=== PATIENT | male | born 1950 | race Caucasian/White ===

== ENCOUNTER 2019-11-27 09:52 | Day surgery (SDC) | payer MEDICARE ==
[~2019-11-27] VITALS: Ht 167.6 cm; Wt 106.6 kg
[2019-11-27] MEDS ORDERED: DICLOFENAC SOD100 G1 (10:17)
[2019-11-27] MEDS ORDERED: ZOCOR20 MG (10:17)
[2019-11-27] MEDS ORDERED: IBUP800 (10:17)
[2019-11-27] MEDS ORDERED: METF500 (10:18)
[2019-11-27] MEDS ORDERED: ZOLP10 (10:18)
== END 2019-11-27 11:42 | disposition home or self-care (01) ==
LOC: ORSCSDS 09:52
PROVIDERS: Internal Medicine Gastroenterology
PROC: 0DB68ZX Excision of Stomach, Via Natural or Artificial Opening Endoscopic, Diagnostic (ICD-10-PCS; principal; 2019-11-27 11:00)
PROC: 0D758ZZ Dilation of Esophagus, Via Natural or Artificial Opening Endoscopic (ICD-10-PCS; principal; 2019-11-27 11:00)
PROC: 0DJD8ZZ Inspection of Lower Intestinal Tract, Via Natural or Artificial Opening Endoscopic (ICD-10-PCS; principal; 2019-11-27 11:00)
PROC: 0DB58ZX Excision of Esophagus, Via Natural or Artificial Opening Endoscopic, Diagnostic (ICD-10-PCS; principal; 2019-11-27 11:00)
DX: R13.10 Dysphagia, unspecified (principal); Z12.11 Encounter for screening for malignant neoplasm of colon; K21.0 Gastro-esophageal reflux disease with esophagitis; K22.2 Esophageal obstruction; K44.9 Diaphragmatic hernia without obstruction or gangrene; K64.8 Other hemorrhoids; E11.9 Type 2 diabetes mellitus without complications; Z87.19 Personal history of other diseases of the digestive system; Z87.891 Personal history of nicotine dependence; E66.01 Morbid (severe) obesity due to excess calories; Z68.38 Body mass index [BMI] 38.0-38.9, adult; Z79.84 Long term (current) use of oral hypoglycemic drugs; Z79.899 Other long term (current) drug therapy
CPT/HCPCS: 43249; 43239; G0121; 82947; 88305; 88312; 88342; C1726; J2704; J7120

== ENCOUNTER 2020-04-29 07:37 | Day surgery (SDC) | payer MEDICARE ==
[~2020-04-29] VITALS: Ht 172.7 cm; Wt 108.3 kg
[~2020-04-29 07:37] MED LIST: DICLOFENAC SOD100 G1; GLIPIZIDE-METF1 EAC1 PO; IBUP800; METF500; OMEP20ER PO; ZOCOR20 MG; ZOLP10
[2020-04-29] MEDS ORDERED: FAMO20 PO (08:21)
--- NOTE | 2020-04-29 09:18 | NUR ---
04/29/[address] AWARE OF BP. WILL CONTINUE TO MONITOR. STEP DOWN NOTIFIED AND WILL MONITOR.
== END 2020-04-29 09:30 | disposition home or self-care (01) ==
LOC: ORSCSDS 07:37
PROVIDERS: Anesthesiology
PROC: 3E0R33Z Introduction of Anti-inflammatory into Spinal Canal, Percutaneous Approach (ICD-10-PCS; principal; 2020-04-29 08:45)
DX: M54.12 Radiculopathy, cervical region (principal); E11.9 Type 2 diabetes mellitus without complications; E78.00 Pure hypercholesterolemia, unspecified; K21.9 Gastro-esophageal reflux disease without esophagitis; E66.9 Obesity, unspecified; Z68.36 Body mass index [BMI] 36.0-36.9, adult; Z79.84 Long term (current) use of oral hypoglycemic drugs; Z79.899 Other long term (current) drug therapy
CPT/HCPCS: 82947; J1040; J2250; J3010; J7040

== ENCOUNTER → 2020-11-19 | Outpatient (CLI) | payer MEDICARE ==
[~2020-11-19] MED LIST changes: +FAMO20 PO
[2020-11-19 12:49] LABS: U Amphetamine Screen Not Detected
[2020-11-19 12:50] LABS: U Barbituate Screen Not Detected; U Benzodiazapine Screen Not Detected; U Buprenorphine Screen Not Detected; U Cannabinoids Screen Not Detected; U Cocaine Screen Not Detected; U Methadone Screen Not Detected; U Methamphetamine Screen Not Detected; U Opiates Screen Not Detected; U Oxycodone Screen Not Detected; U Phencyclidine Screen Not Detected; U Propoxyphene Screen Not Detected
== END | disposition home or self-care (01) ==
LOC: LAB 10:50 → LAB SHORT 10:50
PROVIDERS: Physician Assistant Medical
DX: Z51.81 Encounter for therapeutic drug level monitoring (principal); Z79.891 Long term (current) use of opiate analgesic

== ENCOUNTER 2021-08-11 10:45 | Day surgery (SDC) | payer MEDICARE ==
[~2021-08-11] VITALS: Ht 172.7 cm; Wt 106.6 kg
[2021-08-11] MEDS ORDERED: Prinivil5 MG (11:01)
--- NOTE | 2021-08-11 11:46 | NUR ---
08/11/21 1146 Reji Villanueva ISOVUE 200 & LIDOCAINE 1% USED DURING PROCEDURE BY DR ABDUL.
== END 2021-08-11 12:26 | disposition home or self-care (01) ==
LOC: ORSCSDS 10:45
PROVIDERS: Anesthesiology
PROC: 3E0R33Z Introduction of Anti-inflammatory into Spinal Canal, Percutaneous Approach (ICD-10-PCS; principal; 2021-08-11 11:45)
DX: M50.123 Cervical disc disorder at C6-C7 level with radiculopathy (principal); K21.9 Gastro-esophageal reflux disease without esophagitis; I10 Essential (primary) hypertension; E78.00 Pure hypercholesterolemia, unspecified; E11.9 Type 2 diabetes mellitus without complications; E66.9 Obesity, unspecified; Z68.36 Body mass index [BMI] 36.0-36.9, adult; Z87.891 Personal history of nicotine dependence; Z79.899 Other long term (current) drug therapy
CPT/HCPCS: 82947; J1040; J1100; J1885; J2250; J2405; J3010

== ENCOUNTER 2021-12-30 06:50 | Inpatient (IN) | payer MEDICARE ==
[~2021-12-30] VITALS: Ht 172.7 cm; Wt 100.9 kg
[~2021-12-30 06:50] MED LIST changes: +Prinivil5 MG PO; -ZOCOR20 MG; +ZOCOR20 MG PO; -ZOLP10; +ZOLP10 PO
[2021-12-30 07:22] LABS: BASOPHILS ABSOLUTE AUTO 0.04 K/mm3 (0.00-0.23); BASOPHILS PERCENT AUTO 0 % (0-2); EOSINOPHILS ABSOLUTE AUTO 0.09 K/mm3 (0.00-0.68); EOSINOPHILS PERCENT AUTO 1 % (0-6); Hemoglobin 17.6 g/dL (13.5-17.5); IMMATURE GRAN ABSOLUTE AUTO 0.07 K/mm3 (0.00-0.10); IMMATURE GRAN PERCENT AUTO 1 % (0-1); LYMPHOCYTES ABSOLUTE AUTO 1.24 K/mm3 (0.84-5.20); LYMPHOCYTES PERCENT AUTO 10 % (21-46); MONOCYTES ABSOLUTE AUTO 0.56 K/mm3 (0.16-1.47); MONOCYTES PERCENT AUTO 4 % (4-13); Mean Corpuscular HGB 29.4 pg (26.0-34.0); Mean Corpuscular HGB Conc 31.1 g/dL (31.5-36.5); Mean Corpuscular Volume 95 fL (80-100); Mean Platelet Volume 10.4 fL (9.1-12.4); NEUTROPHILS ABSOLUTE AUTO 10.59 K/mm3 (1.96-9.15); NEUTROPHILS PERCENT AUTO 84 % (41-73); Platelet Count 286 K/mm3 (150-400); RDW Coefficient Variation 13.1 % (11.7-14.2); RDW Standard Deviation 45.5 fL (35.1-46.3); Red Blood Cell Count 5.98 M/mm3 (4.30-5.90); White Blood Cell Count 12.59 K/mm3 (4.00-11.30)
[2021-12-30 07:25] LABS: Hematocrit 56.6 % (37.0-53.0)
[2021-12-30 07:37] LABS: Albumin, Blood 3.7 g/dL (3.4-5.0); Albumin/Globulin Ratio 0.8 (0.8-1.8); Bilirubin, Total 3.2 mg/dL (0.1-1.0); Calcium, Blood 11.1 mg/dL (8.5-10.1); Creatinine, Blood 0.86 mg/dL (0.60-1.20); Globulin, Blood 4.6 g/dL (2.2-4.0); Potassium, Blood 4.2 mmol/L (3.5-5.5); Total Protein, Blood 8.3 g/dL (6.4-8.2)
[2021-12-30 11:15] LABS: Influenza A, PCR NEGATIVE (NEGATIVE); Influenza B, PCR NEGATIVE (NEGATIVE); Resp Syncytial Virus, PCR NEGATIVE (NEGATIVE); SARS-Cov-2 (COVID-19) PCR, MMC NEGATIVE (NEGATIVE)
[2021-12-30 11:32] LABS: PCO2 Arterial 39.6 mmHg (35-45); PO2 Arterial 72.7 mmHg (80-100); pH Blood Arterial 7.35 (7.35-7.45)
[2021-12-30 12:28] LABS: Source, Urine Clean Catch
[2021-12-30 12:33] LABS: Appearance, Urine Clear (Clear); Blood, Urine Neg (Neg); Color, Urine Yellow (P-Yellow); Glucose Qualitative, Urine 1+ (Neg); Ketones, Urine 2+ (Neg); Leukocyte Esterase, Urine Neg (Neg); Nitrite, Urine Neg (Neg); Protein, Urine 2+ (Neg); Specific Gravity, Urine 1.025 (1.003-1.022); Urobilinogen, Urine 2+ (Normal)
[2021-12-30 12:44] LABS: Bilirubin, Urine 1+ (Neg)
[2021-12-30 12:46] LABS: Bacteria Few /hpf; Mucus Light (0-Heavy); Red Blood Cells, Urine 0-2 /hpf (0-2); Squamous Epithelial Cells Few /hpf (Few); U Amphetamine Screen Not Detected; U Barbituate Screen Not Detected; U Benzodiazapine Screen Not Detected; U Buprenorphine Screen Not Detected; U Cannabinoids Screen Not Detected; U Cocaine Screen Not Detected; U Methadone Screen Not Detected; U Methamphetamine Screen Not Detected; U Opiates Screen Not Detected; U Oxycodone Screen Not Detected; U Phencyclidine Screen Not Detected; U Propoxyphene Screen Not Detected; White Blood Cells, Urine 0-2 /hpf (0-5)
[2021-12-30 13:46] LABS: International Normalized Ratio 1.11; Prothrombin Time Results 11.6 Sec (9.7-11.5)
--- NOTE | 2021-12-30 14:40 | NUR ---
ARRIVAL TO ICU PT ARRIVES TO ICU AT 1350. BEDSIDE REPORT FROM PATRICIA ANDRE. PT ARRIVES A&OX 4. PLEASANT, ANSWERS QUESTIONS APPROPRIATELY. FOLLOWS COMMANDS. STATES HE IS FEELING BETTER. PT REPORTS PAIN TO RUQ STARTING AT 0400 THIS AM. STATES PAIN RESOLVED, DENIES N/V. ABD ROUND, SOFT, NON TENDER. BT X 4. PT DIAPHORETIC/CLAMMY. ROSELINE GTT FOR MAP>65, IVF STARTED AT 150 ML/HR. BBB ON MONITOR, RATE 80'S. TITRATING O2 DOWN, LUNGS CLEAR, DENIES SOB. WILL CONTINUE TO MONITOR.
[2021-12-30] MEDS ORDERED: EUTHYROX25 MC1 PO (14:42)
[2021-12-30] MEDS ORDERED: LOSARTAN POTASS25 M2 PO (14:43)
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
--- NOTE | 2021-12-31 01:32 | NUR ---
PT RESTED COMFORTABLY IN BED OVERNIGHT. DENIES PAIN OR SOB. A&OX4. O2 TITRATED OFF. INDEPENDENT WITH SELF CARE & AMBULATES IN THE ROOM. DENIES GI/ DISCOMFORT. TURNS SELF. WILL CTM
[2021-12-31 03:26] LABS: Hemoglobin 13.2 g/dL (13.5-17.5); Mean Corpuscular HGB Conc 32.2 g/dL (31.5-36.5); Mean Corpuscular Volume 93 fL (80-100); Mean Platelet Volume 9.7 fL (9.1-12.4); Platelet Count 183 K/mm3 (150-400); RDW Coefficient Variation 13.2 % (11.7-14.2); RDW Standard Deviation 45.1 fL (35.1-46.3); White Blood Cell Count 10.41 K/mm3 (4.00-11.30)
[2021-12-31 03:44] LABS: Magnesium, Blood 1.9 mg/dL (1.6-2.4)
[2021-12-31 03:47] LABS: BAND PERCENT MAN 26 % (0-8); BASOPHILS PERCENT MAN 0 % (0-2); EOSINOPHILS PERCENT MAN 1 % (0-6); LYMPHOCYTES ABSOLUTE MAN 0.52 K/mm3 (0.84-5.20); LYMPHOCYTES PERCENT MAN 5 % (21-46); MONOCYTES ABSOLUTE MAN 0.62 K/mm3 (0.16-1.47); MONOCYTES PERCENT MAN 6 % (4-13); NEUTROPHILS ABSOLUTE MAN 9.16 K/mm3 (1.96-9.15); SEG NEUTROPHILS PERCENT MAN 62 % (41-73); TOTAL CELLS COUNTED 100
[2021-12-31 03:48] LABS: Albumin, Blood 2.8 g/dL (3.4-5.0); Albumin/Globulin Ratio 0.9 (0.8-1.8); Bilirubin, Total 3.2 mg/dL (0.1-1.0); Bun/Creatinine Ratio 26.7 (12.0-20.0); Creatinine, Blood 1.05 mg/dL (0.60-1.20); Globulin, Blood 3.1 g/dL (2.2-4.0); Potassium, Blood 4.5 mmol/L (3.5-5.5)
[2021-12-31 03:49] LABS: Calcium, Blood 9.1 mg/dL (8.5-10.1); Total Protein, Blood 5.9 g/dL (6.4-8.2)
--- NOTE | 2021-12-31 09:00 | NUR ---
ASSUMED CARE OF PT. PT ALERT AND ORIENTED, INDEPENDENT IN ROOM. UP TO CHAIR TO EAT BREAKFAST. PT DENIES CHEST PAIN, SHORTNESS OF BREATH. REPORTS ABDOMINAL "FULLNESS" THAT IMPROVES WHEN UP IN CHAIR. VSS. PT DENIES NEEDS AT THIS TIME. SEE FULL SHIFT ASSESSMENT.
--- NOTE | 2021-12-31 14:47 | NUR ---
PT TO SOFTWARE ENGINEERING ANALYST
--- NOTE | 2021-12-31 18:10 | NUR ---
SHIFT SUMMARY PT REMAINS ALERT AND ORIENTED, INDEPENDENT IN ROOM. PT CONTINUES TO DENIES CHEST PAIN, SHORTNESS OF BREATH. REPORTS ABDOMINAL DISCOMFORT AND OCCASIONAL NAUSEA WITH DECREASED APPETITE, PT TREATED PER EMAR. PT TO REHABILITATION PROGRAM COORDINATOR THIS AFTERNOON, NO INTERVENTION WITH RECOMMENDED MEDICAL MANAGEMENT. SURGICAL CONSULT, NO PLAN TO REMOVE GALLSTONES THEYRE NOT OBSTRUCTING. PT'S UPDATED WITH PLAN OF CARE. PT AWAITING PCU BED FOR TRANSFER.
--- NOTE | 2021-12-31 22:52 | NUR ---
UPDATE PATIENT DESATTING INTO MID 80s WHILE SLEEPING. PLACED PATIENT ON 2L NC. OXYGEN SATURATION NOW MAINTAINING LOW TO MID 90s. SEE UPDATED ORDERS.
[2022-01-01 04:12] LABS: Hematocrit 42.7 % (37.0-53.0); Hemoglobin 13.9 g/dL (13.5-17.5); Mean Corpuscular HGB 29.6 pg (26.0-34.0); Mean Corpuscular HGB Conc 32.6 g/dL (31.5-36.5); Mean Corpuscular Volume 91 fL (80-100); Mean Platelet Volume 10.2 fL (9.1-12.4); Platelet Count 196 K/mm3 (150-400); RDW Coefficient Variation 13.2 % (11.7-14.2); Red Blood Cell Count 4.69 M/mm3 (4.30-5.90); White Blood Cell Count 9.35 K/mm3 (4.00-11.30)
[2022-01-01 04:33] LABS: Alanine Aminotransfer (ALT/SGP 375 U/L (12-78); Albumin, Blood 2.6 g/dL (3.4-5.0); Albumin/Globulin Ratio 0.8 (0.8-1.8); Alk Phos 370 U/L (50-136); Anion Gap 8 mmol/L (6-16); Aspartate Aminotrans (AST/SGOT 234 U/L (12-37); Bilirubin, Total 2.7 mg/dL (0.1-1.0); Blood Urea Nitrogen 21 mg/dL (8-24); Bun/Creatinine Ratio 27.2 (12.0-20.0); CHOL/HDL RATIO 14.2; CO2, Blood 24 mmol/L (21-32); Calcium, Blood 9.5 mg/dL (8.5-10.1); Chloride, Blood 109 mmol/L (98-108); Cholesterol 142 mg/dL (50-200); Creatinine, Blood 0.77 mg/dL (0.60-1.20); Globulin, Blood 3.3 g/dL (2.2-4.0); Glomerular Filtration Rate 97 (60-); Glucose, Blood 169 mg/dL (70-99); HDL Cholesterol 10 mg/dL (>39); LDL/HDL RATIO 9.3; Low Density Lipoprotein Chol 93 mg/dL (0-110); Magnesium, Blood 1.9 mg/dL (1.6-2.4); Potassium, Blood 3.9 mmol/L (3.5-5.5); Sodium, Blood 141 mmol/L (136-145); Total Protein, Blood 5.9 g/dL (6.4-8.2); Triglycerides 197 mg/dL (30-160); Very Low Density Lipoprot Chol 39 mg/dL (6-32)
[2022-01-01 05:05] LABS: BAND PERCENT MAN 12 % (0-8); BASOPHILS PERCENT MAN 0 % (0-2); EOSINOPHILS ABSOLUTE MAN 0.18 K/mm3 (0.00-0.68); EOSINOPHILS PERCENT MAN 2 % (0-6); LYMPHOCYTES ABSOLUTE MAN 0.56 K/mm3 (0.84-5.20); LYMPHOCYTES PERCENT MAN 6 % (21-46); MONOCYTES ABSOLUTE MAN 0.37 K/mm3 (0.16-1.47); MONOCYTES PERCENT MAN 4 % (4-13); NEUTROPHILS ABSOLUTE MAN 8.22 K/mm3 (1.96-9.15); SEG NEUTROPHILS PERCENT MAN 76 % (41-73); TOTAL CELLS COUNTED 100
--- NOTE | 2022-01-01 05:40 | NUR ---
SHIFT SUMMARY PATIENT ALERT AND ORIENTED x4. VSS. PATIENT WEARING 2L NC OVERNIGHT D/T DESATTING TO MID 80s WHILE SLEEPING. PATIENT TOLERATING RA WHILE AWAKE. TR BAND REMOVED AROUND 2200, TRANSPARENT DRESSING PLACED OVER INCISION. REMAINS C/D/I, NO SIGN OF HEMATOMA, ARM BOARD IN PLACE. AMBULATING INTO BATHROOM WITH MINIMAL ASSIST. NO OTHER SIGNIFICANT CHANGES THIS SHIFT. BED IN LOW POSITION, CALL LIGHT IN REACH. WILL REPORT TO DAY SHIFT RN.
--- NOTE | 2022-01-01 08:58 | NUR ---
TOOK OVER CARE OF PT AT 0700. PT RESTING.
--- NOTE | 2022-01-02 06:17 | NUR ---
SHIFT SUMMARY PATIENT ALERT AND ORIENTED x4, ABLE TO MAKE NEEDS KNOWN TO STAFF. VSS, PATIENT ON RA WITH O2 SAT >90%. NO REPORTS OF CHEST PAIN. RIGHT RADIAL SITE IS OPEN TO AIR. NO DRAINAGE OR SIGNS OF HEMATOMA. PATIENT AMBULATING INDEPENDENTLY IN THE ROOM OR TO BATHROOM. SUCCESSFUL BMs THIS SHIFT. NO OTHER SIGNIFICANT CHANGES THIS SHIFT. WILL REPORT TO DAY SHIFT RN.
[2022-01-02 07:08] LABS: Albumin, Blood 2.3 g/dL (3.4-5.0); Albumin/Globulin Ratio 0.6 (0.8-1.8); Bilirubin, Total 2.8 mg/dL (0.1-1.0); Bun/Creatinine Ratio 25.1 (12.0-20.0); Calcium, Blood 9.4 mg/dL (8.5-10.1); Creatinine, Blood 0.64 mg/dL (0.60-1.20); Globulin, Blood 3.6 g/dL (2.2-4.0); Potassium, Blood 3.8 mmol/L (3.5-5.5); Total Protein, Blood 5.9 g/dL (6.4-8.2)
--- NOTE | 2022-01-02 10:28 | NUR ---
HR/BP HR TOUCHING UP TO 110S AND THEN RETURNING TO 80S-90S. BP 163/90. PT DENIES ANY CP, PRESSURE OR SOB.
--- NOTE | 2022-01-02 12:54 | NUR ---
UPDATED DR LIZARRAGA ON PT'S VS. [address] LIZARRAGA THAT VS WERE TAKEN AT 1030 DUE TO TACHY READING ON TELE. PT DENIED AND CONTINUES TO DENY ANY CP OR PRESSURE OR SOB. DR LIZARRAGA TO PLACE ORDERS FOR DC.
[2022-01-02] MEDS ORDERED: ELIQUIS5 M2 PO (13:32)
[2022-01-02] MEDS ORDERED: Aspir 8181 MG PO (13:33)
[2022-01-02] MEDS ORDERED: Calcium Carbon500 MG PO (13:34)
[2022-01-02] MEDS ORDERED: DOCUZEN 8.6-501 EACH PO (13:35)
[2022-01-02] MEDS ORDERED: FAMO20 PO (13:35)
[2022-01-02] MEDS ORDERED: METO25ER PO (13:38)
--- NOTE | 2022-01-02 14:54 | NUR ---
discharged DC'D IVS, CATHETERS INTACT. REMOVED AND RETURNED TELE. 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 REMAINING PRESCRIPTIONS WERE FAXED TO [facility] PER PT REQUEST. REVIEWED DC INSTRUCTIONS W/PT; VERBALIZED UNDERSTANDING. PT LEFT UNIT IN WC W/POSSESSIONS AND DC PAPERWORK IN HAND, ACCOMPANIED BY FAMILY.
== END 2022-01-02 14:53 | disposition home or self-care (01) | DRG 280 ==
LOC: ER 06:50 → ICUE 12:44 → ICUW 12:44 → ICUE 13:48 → PCU 12-31 18:56
PROVIDERS: Emergency Medicine; Internal Medicine; Internal Medicine Cardiovascular Disease; Nurse Practitioner Acute Care; ADMIT Internal Medicine
PROC: 5A2204Z Restoration of Cardiac Rhythm, Single (ICD-10-PCS; 2021-12-30)
PROC: 4A023N7 Measurement of Cardiac Sampling and Pressure, Left Heart, Percutaneous Approach (ICD-10-PCS; principal; 2021-12-31)
PROC: B2111ZZ Fluoroscopy of Multiple Coronary Arteries using Low Osmolar Contrast (ICD-10-PCS; 2021-12-31)
DX: I21.4 Non-ST elevation (NSTEMI) myocardial infarction (principal); J96.01 Acute respiratory failure with hypoxia; K85.90 Acute pancreatitis without necrosis or infection, unspecified; I48.92 Unspecified atrial flutter; E87.2 Acidosis; R65.10 Systemic inflammatory response syndrome (SIRS) of non-infectious origin without acute organ dysfunction; R57.9 Shock, unspecified; I47.1 Supraventricular tachycardia; I50.20 Unspecified systolic (congestive) heart failure; Z20.822 Contact with and (suspected) exposure to COVID-19; K80.20 Calculus of gallbladder without cholecystitis without obstruction; I11.0 Hypertensive heart disease with heart failure; E11.9 Type 2 diabetes mellitus without complications; I25.10 Atherosclerotic heart disease of native coronary artery without angina pectoris; I27.20 Pulmonary hypertension, unspecified; I50.810 Right heart failure, unspecified; Z68.35 Body mass index [BMI] 35.0-35.9, adult; E78.2 Mixed hyperlipidemia; R74.01 Elevation of levels of liver transaminase levels; E66.01 Morbid (severe) obesity due to excess calories; M54.9 Dorsalgia, unspecified; G89.29 Other chronic pain; K21.9 Gastro-esophageal reflux disease without esophagitis; E03.9 Hypothyroidism, unspecified; Z79.84 Long term (current) use of oral hypoglycemic drugs; Z79.899 Other long term (current) drug therapy; Z90.49 Acquired absence of other specified parts of digestive tract
CPT/HCPCS: 0241U; 36415; 36600; 71045; 71260; 74177; 76705; 80053; 80061; 81001; 82330; 82803; 82947; 83605; 83690; 83735; 84443; 84484; 85025; 85610; 87040; 87077; 87186; 93005; 93010; 93306; 93458; 93970; 96365-59; 96367-59; 96375-59; 96376-59; 99152; 99153; 99285-25; A9270; C1751; C1769; C1894; J0153; J1644; J1650; J2250; J2270; J2370; J2405; J2543; J3010; J3475; J7030; J7040; P9046; Q9967